=== PATIENT | female | born 1970 | race Hispanic/Latino ===

== ENCOUNTER 2017-05-22 08:31 | Day surgery (SDC) | payer MEDICAID ==
[2017-05-21 15:21] VITALS: BMI 30.2
[2017-05-22] MEDS ORDERED: Propofol 10 mg/ml Inj (20 ML) ONE (12:56)
[2017-05-22] MEDS ORDERED: Lactated Ringer's 500 ML IV ONE (13:00)
--- NOTE | 2017-05-22 13:01 | CP.SDSHP ---
Same Day Surgery H & P - History Proposed Procedure: endoscopy Pre-Op Diagnosis: dysphagia, reflux - Allergies Allergies: Allergies No Known Allergies Allergy (Unverified 05/22/17 09:15) - Physical Exam Vital Signs: Vital Signs 05/22/17 05/22/17 08:50 10:58 Temperature 98 F Pulse Rate 76 76 Respiratory 19 Rate Blood Pressure 123/75 O2 Sat by Pulse 98 Oximetry Mental Status: Alert & Oriented x3 Neuro: WNL Heart: WNL Lungs: WNL GI: WNL - {Optional Preform as Required} Abdomen: WNL - Impression Impression: dysphagia, reflux, esophagitis Pt. Evaluated Today:Candidate for Anesthesia & Procedure: Yes - Date & Time Date: 05/22/17 Time: 12:50 Short Stay Discharge - Short Stay Discharge Admitting Diagnosis/Reason for Visit: DYSPHAGIA Disposition: HOME/ ROUTINE
[2017-05-22 13:09] VITALS: O2SAT 100
[2017-05-22 13:48] VITALS: TEMP 97.9
[2017-05-22 14:15] VITALS: BP 136/79; PULSE 95; RESP 16
== END 2017-05-22 14:13 | disposition home or self-care (01) ==
LOC: C.ENDO 08:31
PROVIDERS: ATTEND Internal Medicine Gastroenterology
DX: K21.0 Gastro-esophageal reflux disease with esophagitis (principal); R13.10 Dysphagia, unspecified; K29.70 Gastritis, unspecified, without bleeding
CPT/HCPCS: 43239; 84703; 88305; J2001; J2704; J7120